=== PATIENT | female | born 1955 | race Caucasian/White ===

== ENCOUNTER 2023-06-11 09:21 | Day surgery (SDC) | payer MEDICAID, MEDICARE ==
[~2023-06-11] VITALS: Ht 152.4 cm; Wt 70.3 kg
[~2023-06-11 09:21] MED LIST: MEPERIDINE 100 MG INJ. 100 MG/ML VIAL ONE; MIDAZOLAM HCL 5 MG/5 ML VIAL ONE
[2023-06-11] MEDS ORDERED: SIMETHICONE 40 MG/0.6 ML ML ONE (10:53)
[2023-06-11] MEDS ORDERED: MEPERIDINE 100 MG INJ. 100 MG/ML VIAL ONE (10:53)
[2023-06-11] MEDS ORDERED: MIDAZOLAM HCL 5 MG/5 ML VIAL ONE (10:53)
[2023-06-11 13:09] VITALS: O2SAT 97
[2023-06-11 14:02] VITALS: BP_SYST 90; PULSE 57; RESP 22
== END 2023-06-11 12:16 | disposition home or self-care (01) ==
LOC: SDS 09:21 → SMU 09:21 → SDS 12:16
PROVIDERS: ATTEND Internal Medicine Gastroenterology
DX: R19.4 Change in bowel habit (principal); R19.7 Diarrhea, unspecified; K64.8 Other hemorrhoids; D12.5 Benign neoplasm of sigmoid colon; D12.8 Benign neoplasm of rectum; E11.9 Type 2 diabetes mellitus without complications; I10 Essential (primary) hypertension; F17.210 Nicotine dependence, cigarettes, uncomplicated; Z79.84 Long term (current) use of oral hypoglycemic drugs; Z79.899 Other long term (current) drug therapy; Z88.0 Allergy status to penicillin
CPT/HCPCS: 45385; 99152; 82962; 88305; J2250 ×2; J2175 ×2; G0378; 45384